=== PATIENT | female | born 1995 | race Caucasian/White ===

== ENCOUNTER 2017-06-01 02:07 | Emergency (ER) | payer BC ==
[2017-06-01] MEDS ORDERED: predniSONE TAB* 20 MG PO ONE (02:28)
[2017-06-01] MEDS ORDERED: Ibuprofen TAB* 800 MG PO ONE (02:28)
[2017-06-01] MEDS ORDERED: Oseltamivir CAP* 75 MG PO ONE (03:41)
--- NOTE | 2017-06-01 03:58 | ED ---
Giovana Jacinto Edward, scribed for Michela Gandhi MD on 06/01/17 at 0218 . HPI Febrile Illness - HPI Summary HPI Summary: 21 y/o female presents to the ED c/o sore throat and fever, lasting days. Associated sx: cough, body aches, lightheadedness. Pt states she took Tylenol 30 minutes [employer]. 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 Pt has been treating her condition with Tylenol and Ibuprofen. Symptoms not aggravated with anything. - History of Current Complaint Chief Complaint: EDFluSymptoms Time Seen by Provider: 06/01/17 02:14 Hx Obtained From: Patient Onset/Duration: Started Days Ago, Still Present Timing: Constant Pain Intensity: 5 Pain Scale Used: 0-10 Numeric Associated Signs and Symptoms: Cough, Sore Throat, Other: - fever, lightheadedness - Allergy/Home Medications Allergies/Adverse Reactions: Allergies Allergy/AdvReac Type Severity Reaction Status Date / Time No Known Allergies Allergy Verified 06/01/17 02:12 PMH/Surg Hx/FS Hx/Imm Hx Previously Healthy: No Cardiovascular History: Denies: Hx Myocardial Infarction Sensory History: Denies: Hx Legally Blind Infectious Disease History: No Infectious Disease History: Denies: Traveled Outside the [place] in Last 30 Days - Family History Known Family History: Positive: Unknown - Social History Occupation: Student Lives: Dormitory/Roommates Alcohol Use: Occasionally Hx Substance Use: No Substance Use Type: Reports: None Hx Tobacco Use: No Smoking Status (MU): Never Smoked Tobacco Review of Systems Positive: Fever Eyes: Negative Positive: Sore Throat Cardiovascular: Negative Positive: Cough Gastrointestinal: Negative Genitourinary: Negative Positive: Myalgia Skin: Negative Neurological: Other - Lightheadedness Psychological: Normal All Other Systems Reviewed And Are Negative: Yes Physical Exam - Summary Physical Exam Summary: VITAL SIGNS: Reviewed. GENERAL: Patient is a well-developed and nourished female who is lying comfortable in the stretcher. Patient is not in any acute respiratory distress. HEAD AND FACE: No signs of trauma. No ecchymosis, hematomas or skull depressions. No sinus tenderness. EYES: PERRLA, EOMI x 2, No injected conjunctiva, no nystagmus. EARS: Hearing grossly intact. Ear canals and tympanic membranes are within normal limits. MOUTH: Pharyngeal erythmea without exudates. NECK: Supple, trachea is midline, no adenopathy, no JVD, no carotid bruit, no c- spine tenderness, neck with full ROM. CHEST: Symmetric, no tenderness at palpation LUNGS: Clear to auscultation bilaterally. No wheezing or crackles. CVS: Regular rate and rhythm, S1 and S2 present, no murmurs or gallops appreciated. ABDOMEN: Soft, non-tender. No signs of distention. No rebound no guarding, and no masses palpated. Bowel sounds are normal. EXTREMITIES: FROM in all major joints, no edema, no cyanosis or clubbing. NEURO: Alert and oriented x 3. No acute neurological deficits. Speech is normal and follows commands. SKIN: Dry and warm Triage Information Reviewed: Yes Vital Signs On Initial Exam: Initial Vitals Temp Pulse Resp BP Pulse Ox 100.3 F 125 18 141/98 97 06/01/17 02:09 06/01/17 02:09 06/01/17 02:09 06/01/17 02:09 06/01/17 02:09 Vital Signs Reviewed: Yes Diagnostics - Vital Signs Vital Signs Temp Pulse Resp BP Pulse Ox 06/01/17 02:09 100.3 F 125 18 141/98 97 - Laboratory Lab Statement: Any lab studies that have been ordered have been reviewed, and results considered in the medical decision making process. Course/Dx - Course Assessment/Plan: 21 y/o female presents to the ED c/o sore throat and fever for several days. Influenza A positive, rapid strep negative, in the ED. Pt will be d/c home, f/u at [facility]. - Diagnoses Provider Diagnoses: Influenza A Discharge - Discharge Plan Condition: Stable Disposition: HOME Patient Education Materials: Influenza (ED) Referrals: [facility] - Natalio LOFTON [Medical Doctor] - 4 Days (PLEASE F/U IN 3-5 DAYS) Additional Instructions: RETURN TO THE ED IF YOUR SYMPTOMS PERSIST OR WORSEN The documentation as recorded by the Giovana walls Edward accurately reflects the service I personally performed and the decisions made by , Michela Gandhi MD.
[2017-06-01 04:24] VITALS: BP 131/75
== END 2017-06-01 04:22 | disposition home or self-care (01) ==
LOC: ED 02:07
DX: J11.1 Influenza due to unidentified influenza virus with other respiratory manifestations (principal)
CPT/HCPCS: 87502; 87651; 99282; A9270-GY; J7512